=== PATIENT | male | born 1975 | race Two or more races ===

== ENCOUNTER 2018-04-14 13:27 | Emergency (ER) | payer BC ==
[~2018-04-14] VITALS: Ht 180.3 cm; Wt 86.2 kg
[~2018-04-14 13:27] MED LIST: CHLO4TAB PO
[2018-04-14] MEDS ORDERED: IV NORMAL SALINE 1000ML BAG 1,000 ML IV ONE (14:30)
[2018-04-14] MEDS ORDERED: ONDANSETRON PF 4 MG/2 ML VIAL. IV ONE (14:30)
[2018-04-14 14:52] LABS: BASO % 1 % (0-3); EOS # 0.1 x10^3/uL (0.0-0.7); EOS % 1 % (0-3); HEMATOCRIT 44.5 % (39.0-53.0); HEMOGLOBIN 15.4 g/dL (13.0-17.5); LYMPH # 2.2 x10^3/uL (1.0-4.8); LYMPH % 28 % (24-48); MEAN CORPUSCULAR HEMOGLOBIN 29 pg (25-35); MEAN CORPUSCULAR HGB CONC 35 g/dL (31-37); MEAN CORPUSCULAR VOLUME 84 fL (79-100); MONO # 0.7 x10^3/uL (0.0-1.1); MONO % 9 % (0-9); NEUT % 62 % (31-73); PLATELET COUNT 281 x10^3/uL (140-400); RED BLOOD COUNT 5.33 x10^6/uL (4.30-5.70); RED CELL DISTRIBUTION WIDTH 13.3 % (11.5-14.5)
--- NOTE | 2018-04-14 14:53 | RAD ---
EXAM: CHEST 1 VIEW History: Right mid, flank pain COMPARISON: None available. TECHNIQUE: Single portable radiograph of the chest FINDINGS: The cardiac silhouette is unremarkable. The lungs are clear bilaterally. The costophrenic sulci are clear and well demarcated. IMPRESSION: No radiographic evidence of an acute cardiopulmonary process. Electronically signed by: Gus Ramos MD (04/14/2018 2:50 PM) [id number]
[2018-04-14] MEDS ORDERED: MORPHINE SULFATE 4 MG/ML VIAL. IV ONE (15:00)
--- NOTE | 2018-04-14 15:13 | PHYS DOC ---
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 Patient states the pain is worse on movement. Patient denies any injury. He has not tried anything for his pain. PCP Dr. Mendez Review of Systems Review of Systems Constitutional: Denies fever or chills [] Eyes: Denies change in visual acuity, redness, or eye pain [] HENT: Denies nasal congestion or sore throat [] Respiratory: Reports pain to the right anterior ribs. Denies cough or shortness of breath [] Cardiovascular: No additional information not addressed in HPI [] GI: Denies abdominal pain, nausea, vomiting, bloody stools or diarrhea [] : Denies dysuria or hematuria [] Musculoskeletal: Reports right flank pain. Reports right eye pain. Integument: Denies rash or skin lesions [] Neurologic: Denies headache, focal weakness or sensory changes [] All other systems were reviewed and found to be within normal limits, except as documented in this note. Current Medications Current Medications Current Medications Medications (Trade) Dose Ordered Sig/[facility] Start Time Stop Time Status Last Admin Dose Admin Morphine Sulfate (Morphine Sulfate) 4 mg 1X ONCE 04/14/18 15:00 04/14/18 15:01 DC 04/14/18 14:58 4 MG Ondansetron HCl (Zofran) 4 mg 1X ONCE 04/14/18 14:30 04/14/18 14:34 DC 04/14/18 14:57 4 MG Sodium Chloride 1,000 ml @ 1,000 mls/hr 1X ONCE 04/14/18 14:30 04/14/18 15:29 DC 04/14/18 14:56 1,000 MLS/HR Allergies Allergies Allergies Coded Allergies Type Severity Reaction Last Updated Verified No Known Drug Allergies 08/22/14 No Physical Exam Physical Exam Constitutional: Well developed, well nourished, no acute distress, non-toxic appearance. [] HENT: Normocephalic, atraumatic, bilateral external ears normal, oropharynx moist, no oral exudates, nose normal. [] Eyes: PERRLA, EOMI, conjunctiva normal, no discharge. [] Neck: Normal range of motion, no tenderness, supple, no stridor. [] Cardiovascular:Heart rate regular rhythm, no murmur [] Lungs & Thorax: Right anterior ribs with a mild sized fatty tumor, no tenderness over the tumor, no redness. Bilateral breath sounds clear to auscultation [] Abdomen: Bowel sounds normal, soft, no tenderness, no masses, no pulsatile masses. [] Skin: Warm, dry, no erythema, no rash. [] Back: No tenderness, no CVA tenderness. [] Extremities: No tenderness, no cyanosis, no clubbing, ROM intact, no edema. [] Neurologic: Alert and oriented X 3, normal motor function, normal sensory function, no focal deficits noted. [] Psychologic: Affect normal, judgement normal, mood normal. [] Current Patient Data Vital Signs Vital Signs Date Time Temp Pulse Resp B/P (MAP) Pulse Ox O2 Delivery O2 Flow Rate FiO2 04/14/18 16:30 70 19 113/71 (85) 97 Room Air 04/14/18 14:23 98.3 98.3 Lab Values Laboratory Tests Test 04/14/18 14:30 04/14/18 15:30 White Blood Count 8.0 x10^3/uL (4.0-11.0) Red Blood Count 5.33 x10^6/uL (4.30-5.70) Hemoglobin 15.4 g/dL (13.0-17.5) Hematocrit 44.5 % (39.0-53.0) Mean Corpuscular Volume 84 fL (79-100) Mean Corpuscular Hemoglobin 29 pg (25-35) Mean Corpuscular Hemoglobin Concent 35 g/dL (31-37) Red Cell Distribution Width 13.3 % (11.5-14.5) Platelet Count 281 x10^3/uL (140-400) Neutrophils (%) (Auto) 62 % (31-73) Lymphocytes (%) (Auto) 28 % (24-48) Monocytes (%) (Auto) 9 % (0-9) Eosinophils (%) (Auto) 1 % (0-3) Basophils (%) (Auto) 1 % (0-3) Neutrophils # (Auto) 5.0 x10^3uL (1.8-7.7) Lymphocytes # (Auto) 2.2 x10^3/uL (1.0-4.8) Monocytes # (Auto) 0.7 x10^3/uL (0.0-1.1) Eosinophils # (Auto) 0.1 x10^3/uL (0.0-0.7) Basophils # (Auto) 0.0 x10^3/uL (0.0-0.2) Sodium Level 141 mmol/L (136-145) Potassium Level 3.8 mmol/L (3.5-5.1) Chloride Level 103 mmol/L (98-107) Carbon Dioxide Level 26 mmol/L (21-32) Anion Gap 12 (6-14) Blood Urea Nitrogen 17 mg/dL (8-26) Creatinine 0.9 mg/dL (0.7-1.3) Estimated GFR (Cockcroft-Gault) 92.1 BUN/Creatinine Ratio 19 (6-20) Glucose Level 103 mg/dL (70-99) H Calcium Level 9.0 mg/dL (8.5-10.1) Magnesium Level 2.0 mg/dL (1.8-2.4) Total Bilirubin 1.7 mg/dL (0.2-1.0) H Aspartate Amino Transferase (AST) 16 U/L (15-37) Alanine Aminotransferase (ALT) 27 U/L (16-63) Alkaline Phosphatase 75 U/L (46-116) Creatine Kinase 126 U/L (39-308) Creatine Kinase MB (Mass) 2.2 ng/mL (0.0-3.6) Creatine Kinase MB Relative Index 1.7 % (0-4) Troponin I Quantitative 0.051 ng/mL (0.000-0.055) JT-Lxz-D-Type Natriuretic Peptide 9 pg/mL (0-124) Total Protein 7.7 g/dL (6.4-8.2) Albumin 4.5 g/dL (3.4-5.0) Albumin/Globulin Ratio 1.4 (1.0-1.7) Lipase 99 U/L (73-393) Thyroid Stimulating Hormone (TSH) 2.061 uIU/mL (0.358-3.74) Urine Collection Type Unknown Urine Color Yellow Urine Clarity Clear Urine pH 6.5 Urine Specific [place] 1.010 Urine Protein Negative mg/dL (NEG-TRACE) Urine Glucose (UA) Negative mg/dL (NEG) Urine Ketones (Stick) Negative mg/dL (NEG) Urine Blood Negative (NEG) Urine Nitrite Negative (NEG) Urine Bilirubin Negative (NEG) Urine Urobilinogen Dipstick 0.2 mg/dL (0.2 mg/dL) Urine Leukocyte Esterase Negative (NEG) Urine RBC 0 /HPF (0-2) Urine WBC Occ /HPF (0-4) Urine Squamous Epithelial Cells Occ /LPF Urine Bacteria 0 /HPF (0-FEW) Urine Mucus Slight /LPF Urine Opiates Screen Neg (NEG) Urine Methadone Screen Neg (NEG) Urine Barbiturates Neg (NEG) Urine Phencyclidine Screen Neg (NEG) Urine Amphetamine/Methamphetamine Neg (NEG) Urine Benzodiazepines Screen Neg (NEG) Urine Cocaine Screen Neg (NEG) Urine Cannabinoids Screen Neg (NEG) Urine Ethyl Alcohol Neg (NEG) Laboratory Tests 04/14/18 14:30 Laboratory Tests 04/14/18 14:30 EKG EKG Interpreted by Dr. Conway sinus rhythm HR 82 no STEMI[] Radiology/Procedures Radiology/Procedures []PROCEDURE: CT ABDOMEN PELVIS WO CONTRAST CT Abdomen and Pelvis without contrast History: Right flank pain Technique: Noncontrast CT imaging was performed of the abdomen and pelvis. Multiplanar images are reviewed. Exposure: One or more of the following individualized dose reduction techniques were utilized for this examination: 1. Automated exposure control 2. Adjustment of the mA and/or kV according to patient size 3. Use of iterative reconstruction technique. Comparison: 09/29/2014 Findings: There is no ureteral calculus or hydronephrosis. There are 3 right renal calculi, largest superiorly about 0.5 cm larger and more numerous than previously. There is again 0.3 cm left renal calculus, punctate calculus inferiorly. Accurate evaluation of abdominal visceral organs is limited without intravenous contrast. There is no obvious abnormality of the spleen, liver, or pancreas. There is no adrenal nodularity. Accurate evaluation of bowel is limited without oral contrast. Normal appendix is visualized. There is retained stool greater of the ascending and transverse colon. There is no significant inflammatory change about the bowel. There is again more prominent submucosal fat of the distal small bowel in the right abdomen. There is minimal fat left inguinal canal without internal bowel is seen previously. Impression: 1. There are nonobstructive bilateral renal calculi, no hydronephrosis or ureteral calculus. There is no CT evidence of acute appendicitis. 2. There is again prominence of submucosal fat of the more distal small bowel on the right, could be seen with sequela of previous inflammatory change/inflammatory bowel disease, no significant inflammatory change about the bowel on this exam. There is retained stool greater of the right transverse colon. Electronically signed by: Amy Pickens MD (04/14/2018 3:09 PM) [id number] DICTATED and SIGNED BY: AMY PICKENS MD DATE: 04/14/18 1503 Course & Med Decision Making Course & Med Decision Making Pertinent Labs and Imaging studies reviewed. (See chart for details) This is a 42-year-old male patient presenting to the ED today with right flank pain, right anterior rib pain around his chronic fatty tumor, and right thigh pain for 3 days. EKG was negative, chest x-ray is negative for any acute findings, CT of the abdomen and pelvic was noted for kidney stones in the kidney , appendix is normal noted for constipation, urine analysis is negative for infection, CBC CMP with no acute findings. Patient to be discharged with cyclobenzaprine, and and diclofenac, encouraged patient to take over-the- counter bowel preps including MiraLAX and magnesium citrate. Also encouraged to exercise. Also encouraged to increase dietary fiber intake as well as water intake. Follow-up with PCP next week. Staff Physician Addendum: I was working in the ER during the course of this patient's visit. I was available for consultation as needed, but I was not directly involved in the care of this patient. Dragon Disclaimer Dragon Disclaimer This electronic medical record was generated, in whole or in part, using a voice recognition dictation system. Departure Departure Impression: Primary Impression: Kidney stone Additional Impressions: Right flank pain Right thigh pain Constipation Disposition: 01 HOME, SELF-CARE Condition: STABLE Referrals: Gabbi MENDEZ MD follow up next week Patient Instructions: Constipation, Adult, Flank Pain, [id number], Musculoskeletal Pain Additional Instructions: You were evaluated for pain today. Your workup was negative for any acute findings. Please follow-up with your primary care doctor next week. Come back to the emergency room at any point symptoms worsen. Scripts Diclofenac Sodium (DICLOFENAC SODIUM) 50 Mg Tablet.dr 1 TAB PO BID, #30 TAB 0 Refills Prov: CONCHA CUEVAS APRN 04/14/18 Cyclobenzaprine Hcl (CYCLOBENZAPRINE HCL) 10 Mg Tablet 1 TAB PO TID, #30 TAB Prov: CONCHA CUEVAS APRN 04/14/18 Problem Qualifiers Additional Impressions: Constipation Constipation type: unspecified constipation type Qualified Codes: K59.00 - Constipation, unspecified CONCHA CUEVAS APRN Apr 14, 2018 15:13 ERIC CONWAY MD Apr 15, 2018 18:46
[2018-04-14 15:19] LABS: CREATININE 0.9 mg/dL (0.7-1.3); GFR 92.1; POTASSIUM 3.8 mmol/L (3.5-5.1)
[2018-04-14 15:30] LABS: ALBUMIN 4.5 g/dL (3.4-5.0); ALBUMIN/GLOBULIN RATIO 1.4 (1.0-1.7); TOTAL BILIRUBIN 1.7 mg/dL (0.2-1.0); TOTAL PROTEIN 7.7 g/dL (6.4-8.2)
[2018-04-14 15:50] LABS: BILIRUBIN,URINE NEGATIVE (NEG); CLARITY,URINE CLEAR; COLOR,URINE YELLOW; NITRITE,URINE NEGATIVE (NEG); PH,URINE 6.5; PROTEIN,URINE NEGATIVE (NEG-TRACE); UROBILINOGEN,URINE 0.2 mg/dL (0.2 mg/dL)
--- NOTE | 2018-04-14 15:51 | EKG ---
[facility] [address] [place] [address] Test Date: 2018-04-14 Test Time: 14:54:54 Pat Name: JENNIE ACKERMAN Department: Room: Gender: M Vegetable [employer]: : 1975 Requested By: CONCHA CUEVAS Order Number: [id number] Reading MD: Bret Levin MD Measurements Intervals [place] Rate: 82 P: 41 TX: 134 QRS: 55 QRSD: 86 T: 46 QT: 364 QTc: 428 Interpretive Statements SINUS RHYTHM Electronically Signed On 04-18-2018 11:55:50 CDT by Bret Levin MD
[2018-04-14 15:57] LABS: AMPHETAMINE/METHAMPHETAMINE NEG (NEG); BARBITURATES NEG (NEG); BENZODIAZEPINES NEG (NEG); CANNABINOIDS NEG (NEG); COCAINE NEG (NEG); METHADONE NEG (NEG); OPIATES NEG (NEG); PHENCYCLIDINE NEG (NEG)
[2018-04-14 15:58] LABS: BACTERIA,URINE 0 /HPF (0-FEW); RBC,URINE 0 /HPF (0-2); SQUAMOUS EPITHELIAL CELL,UR OCC /LPF; WBC,URINE OCC /HPF (0-4)
[2018-04-14] MEDS ORDERED: DICL50TA4 PO (16:21)
[2018-04-14] MEDS ORDERED: CYCL10TA2 PO (16:21)
[2018-04-14 16:30] VITALS: BP 113/71
== END 2018-04-14 17:00 | disposition home or self-care (01) ==
LOC: ER 13:27
DX: N20.0 Calculus of kidney (principal); K59.00 Constipation, unspecified; D17.79 Benign lipomatous neoplasm of other sites; M79.651 Pain in right thigh; R07.81 Pleurodynia
CPT/HCPCS: 36415; 71045; 74176; 80053; 80307; 81001; 82553; 83690; 83735; 83880; 84443; 84484; 85025; 93005; 96374; 96375; 99285; J2270; J2405; J7030; G0479

== ENCOUNTER 2020-05-26 00:14 | Emergency (ER) | payer BC, OTHER ==
[~2020-05-26] VITALS: Ht 180.3 cm; Wt 84.0 kg
[~2020-05-26 00:14] MED LIST changes: +CYCL10TA2 PO; +DICL50TA4 PO
[2020-05-26 00:35] VITALS: BP 144/88
[2020-05-26] MEDS ORDERED: ERYTHROMYCIN 0.5% OPHTH OINTMENT 1GM TUBE. OU ONE (01:30)
[2020-05-26] MEDS ORDERED: FLUORESCEIN OPHTH TEST STRIP. OU ONE (01:30)
[2020-05-26] MEDS ORDERED: TETRACAINE 0.5% OPHTH SOLUTION 4ML BOTTLE. OU ONE (01:30)
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
[2020-05-26] MEDS ORDERED: ERYT1OIN6 OP (02:32)
== END 2020-05-26 02:40 | disposition home or self-care (01) ==
LOC: ER 00:14
DX: S05.02XA Injury of conjunctiva and corneal abrasion without foreign body, left eye, initial encounter (principal); H57.89 Other specified disorders of eye and adnexa; Z86.14 Personal history of Methicillin resistant Staphylococcus aureus infection; F17.200 Nicotine dependence, unspecified, uncomplicated; X58.XXXA Exposure to other specified factors, initial encounter; Y93.89 Activity, other specified; Y92.89 Other specified places as the place of occurrence of the external cause; Y99.8 Other external cause status
CPT/HCPCS: 99283